=== PATIENT | male | born 1960 | race Caucasian/White ===

== ENCOUNTER 2020-04-24 04:26 | Emergency (ER) | payer BC ==
[~2020-04-24] VITALS: Ht 177.8 cm; Wt 82.0 kg
[2020-04-24] MEDS ORDERED: LIDOcaine 1% 30ml preserv. free vial IJ ONE (04:50)
[2020-04-24] MEDS ORDERED: phenylephrine 1% (X-tra strg) 15ml nasal spray NS PRN (04:55)
[2020-04-24] MEDS ORDERED: PHENYLEPHRINE ICATH ONE ×2 (05:05→12:30)
[2020-04-24] MEDS ORDERED: NORMAL SALINE ICATH ONE ×2 (05:05→12:30)
--- NOTE | 2020-04-24 05:58 | NUR ---
dr simpson reports successful procedure and that pt is more comfortable and is now flacid. pt reports no pain. bp now 142/97, was 162/92. talking with Pt about dc instruction.
[2020-04-24 06:04] VITALS: BP 142/68
== END 2020-04-24 06:08 | disposition home or self-care (01) ==
LOC: ER 04:28
DX: N48.33 Priapism, drug-induced (principal); T43.015A Adverse effect of tricyclic antidepressants, initial encounter; I10 Essential (primary) hypertension; Z72.89 Other problems related to lifestyle; Y92.89 Other specified places as the place of occurrence of the external cause
CPT/HCPCS: 54220; 99284